=== PATIENT | female | born 1950 | race Caucasian/White ===

== ENCOUNTER → 2016-12-10 | Outpatient (CLI) | payer MEDICARE, OTHER ==
[~2016-12-10] MED LIST: ASPI-481 PO; CALC-134 PO; CHOL100012 PO; DOCU100C PO; IBUP200C11 PO; OMEG-135 PO; RED600CA7 PO; VIT1CAPS10 PO; [UNRECOGNIZED DRUG - CODE] PO
--- NOTE | 2016-12-10 11:52 | RADRPT ---
PROCEDURE: XR left knee. CLINICAL INDICATION: Knee pain TECHNIQUE: AP weightbearing, PA weightbearing, lateral weightbearing and sunrise views are availab le for review. COMPARISON: 07/21/2015 FINDINGS: There is moderate to severe osteoarthrosis involving the lateral tibial femoral compartment and mild to moderate osteoarthrosis involving the medial tibial femoral compartment and the patellofemoral c ompartment. This is associated with joint space narrowing, subchondral sclerosis and osteophytosis. There is chondrocalcinosis with bilateral meniscal calcification and hyaline cartilage calcification . There is otherwise normal mineralization, architecture and alignment. No fractures are identified. No osseous lesions are identified. The soft tissues are unremarkable. IMPRESSION: Moderate to severe osteoarthrosis involving the lateral tibial femoral compartment and mild to moder ate osteoarthrosis involving the medial tibial femoral compartment and of the patellofemoral compart ment. Chondrocalcinosis RPTAT: HGDB .Johnny Elaine MD, MD Date Time Electronically viewed and signed by .Johnny Elaine MD, on 12/10/2016 11:52 .B/
--- NOTE | 2016-12-12 10:17 | RADRPT ---
PROCEDURE: Limited x-ray of both lower extremities. CLINICAL INDICATION: Bilateral leg pain. TECHNIQUE: Single frontal view of both lower extremities was obtained from the hips to the calves. COMPARISON: Bilateral knee radiographs dated 07/21/2015. FINDINGS: Both hips are grossly normal. As seen previously, there is a right knee total arthroplasty and analilia re degenerative changes of the left knee. IMPRESSION: 1. Grossly normal hips. 2. Right knee total arthroplasty. 3. Severe degenerative changes of the left knee. RPTAT: QQ .David Parada MD, MD Date Time Electronically viewed and signed by .David Parada MD, MD on 12/12/2016 10:17 .R/
== END | disposition home or self-care (01) ==
LOC: HKI 09:52
PROVIDERS: ATTEND Orthopaedic Surgery
DX: Z01.818 Encounter for other preprocedural examination (principal); M17.12 Unilateral primary osteoarthritis, left knee; Z96.651 Presence of right artificial knee joint; M81.0 Age-related osteoporosis without current pathological fracture
CPT/HCPCS: 73564; 77073; 87081; G0463

== ENCOUNTER 2016-12-21 05:45 | Inpatient (IN) | payer MEDICARE, OTHER ==
[2016-12-20 10:02] VITALS: BMI 25.4
[~2016-12-21] VITALS: Ht 162.6 cm; Wt 66.4 kg
[2016-12-21] VITALS (27 sets, daily range): BP systolic 91–126; BP diastolic 58–85; PULSE 57–72; RESP 10–21; Ht 162.6 cm; Wt 66.4 kg
[2016-12-21] MEDS ORDERED: DEXAMETHASONE 4 MG/ML 1 ML INJ ONE (06:44)
[2016-12-21] MEDS ORDERED: ONDANSETRON 4 MG INJ ONE (06:44)
[2016-12-21] MEDS ORDERED: PROPOFOL 100 ML ONE (06:44)
[2016-12-21] MEDS ORDERED: METOCLOPRAMIDE 10 MG INJ ONE (06:44)
[2016-12-21] MEDS ORDERED: MIDAZOLAM 1 MG/ML 2 ML INJ ONE (06:44)
[2016-12-21] MEDS ORDERED: POLYMYXIN B 500000 UNIT INJ ONE (06:51)
[2016-12-21] MEDS ORDERED: VANCOMYCIN 1 GM INJ ONE (06:51)
[2016-12-21] MEDS ORDERED: SODIUM CL BACTERIOSTATIC 30 ML INJ ONE (06:51)
[2016-12-21] MEDS ORDERED: CEFAZOLIN 1 GM INJ ONE (06:52)
[2016-12-21] MEDS ORDERED: ATOR40TA68 PO (06:59)
[2016-12-21] MEDS ORDERED: EXEM25TA PO (06:59)
[2016-12-21] MEDS ORDERED: LEVO88TA3 PO (06:59)
[2016-12-21] MEDS ORDERED: SOD CHLORIDE 0.9% IV ONE (07:00)
[2016-12-21] MEDS ORDERED: VANCOMYCIN 1 GM/NS 250 ML X1 BEFORE INCISION IVPB ONE (07:00)
[2016-12-21] MEDS ORDERED: TRANEXAMIC ACID IV ONE (07:00)
[2016-12-21] MEDS ORDERED: CELECOXIB 400 MG PO X1 DOSE PO ONE (07:00)
[2016-12-21] MEDS ORDERED: oxyCODONE (CR) 10 MG TAB [oxyCONTIN] X1 DOSE PO ONE (07:00)
[2016-12-21] MEDS ORDERED: traMADOL 50 MG TAB X 1 DOSE PO ONE (07:00)
[2016-12-21] MEDS ORDERED: LACTATED RINGER'S 1,000 ML IV SCH (07:00)
[2016-12-21] MEDS ORDERED: PREGABALIN 300 MG PO X1 PO ONE (07:00)
[2016-12-21] MEDS ORDERED: FENTAnyl 50 MCG/ML VIAL ONE (07:05)
--- NOTE | 2016-12-21 07:14 | HPN ---
Date/Time of Note Date/Time of Note DATE: 12/21/16 TIME: 07:14 Interval H&P Admission Note Pt. seen H&P reviewed: No system changes No change from H&P on 12/14/16 by JET Hamilton MD Dec 21, 2016 07:14
[2016-12-21] MEDS ORDERED: TRANEXAMIC ACID 670 MG in SOD CHLORIDE 0.9% 100 ML IVPB SCH (08:00)
[2016-12-21] MEDS ORDERED: PAIN COCKTAIL-CEFUROXIME IRR SCH ×7 (08:00)
[2016-12-21] MEDS ORDERED: BACITRACIN 50000 UNITS INJ IRR ONE (08:22)
[2016-12-21] MEDS ORDERED: METOCLOPRAMIDE 10 MG INJ IV PRN (08:30)
[2016-12-21] MEDS ORDERED: DIPHENHYDRAMINE 50 MG INJ IV PRN (08:30)
[2016-12-21] MEDS ORDERED: MEPERIDINE 25 MG INJ IV PRN (08:30)
[2016-12-21] MEDS ORDERED: ONDANSETRON 4 MG INJ IV PRN ×2 (08:30→10:00)
[2016-12-21] MEDS ORDERED: HYDROmorphONE (0.2 MG/ML) 10ML SYG IV PRN ×3 (08:30)
--- NOTE | 2016-12-21 09:56 | OPPN ---
Date/Time of Note Date/Time of Note DATE: 12/21/16 TIME: 09:54 Operative/Procedure Note Dictation # [id number] Pre-Operative Diagnosis Left Knee OA Post-Operative Diagnosis Same Procedure Left TKA Surgeon: JET BALDERAS MD Lug Loader: MASSIMO RATLIFF PA-C Anesthesiologist: SHANE LEIJA MD Findings Severe OA Blood Usage/Administration None Implants/Grafts Depuy Attune TKA Estimated blood loss: 50 - 100 ml's Drains Hemovac x 1 Specimens Bone and soft tissue Complications: None Anesthesia type: spinal JET BALDERAS MD Dec 21, 2016 09:56
--- NOTE | 2016-12-21 09:56 | PN ---
Date/Time of Note Date/Time of Note DATE: 12/21/16 TIME: 09:52 Assessment/Plan Lines/Catheters IV Catheter Type (from Nrsg): Peripheral IV Assessment/Plan Assessment/Plan Stable in PACU, s/p left TKA -cont abx -pain meds as needed -ASA/SCDs for DVT propphylaxis -OOB with PT -monitor drain -check AM labs -d/c zheng in AM XR of the left knee is pending at this time. Subjective 24 Hr Interval Summary Doing well in PACU. Moving all extremities. Denies any significant pain. Exam/Review of Systems Vital Signs Vitals Vital Signs Date Time Temp Pulse Resp B/P Pulse Ox O2 Delivery O2 Flow Rate FiO2 12/21/16 07:19 98.8 67 18 106/72 97 Room Air Intake and Output 12/20/16 12/20/16 12/21/16 15:00 23:00 07:00 Intake Total 0 ml Balance 0 ml Exam Free Text/Dictation Dressing dry Incision clean, dry, and intact without redness or drainage Thigh soft 5/5 Quadriceps, Tibialis Anterior, EHL, Gastroc, Soleus, Peroneals Normal sensation Palpable DT/PT, CR <2 sec No distal edema MASSIMO RATLIFF PA-C Dec 21, 2016 09:56
[2016-12-21] MEDS ORDERED: DIPHENHYDRAMINE 25 MG CAP PO PRN (10:00)
[2016-12-21] MEDS ORDERED: BISACODYL 10 MG SUPP PR PRN (10:00)
[2016-12-21] MEDS ORDERED: NA PHOSPHATE/BIPHOS 133 ML ENEMA PR PRN (10:00)
[2016-12-21] MEDS ORDERED: oxyCODONE 5 MG TAB PO PRN ×2 (10:00)
[2016-12-21] MEDS ORDERED: HYDROmorphONE 1 MG/ML SYG IV PRN (10:00)
[2016-12-21] MEDS ORDERED: ASPIRIN (EC) 325 MG TAB PO ONE (10:00)
[2016-12-21] MEDS ORDERED: NACL 0.9% 3 ML SYG IV SCH (10:00)
[2016-12-21 10:22] LABS: HEMATOCRIT 38.3 % (37.0-47.0); HEMOGLOBIN 13.3 g/dl (12.0-16.0)
[2016-12-21] MEDS: CEFAZOLIN 2 GM/50 ML (PMX) 50 ML IVPB SCH ×2 (10:25→18:56)
[2016-12-21 10:29] LABS: CALCIUM 8.8 mg/dl (8.4-10.2); CREATININE 0.91 mg/dl (0.44-1.00); POTASSIUM 4.5 mmol/L (3.5-5.1)
--- NOTE | 2016-12-21 10:29 | RADRPT ---
PROCEDURE: XR left knee. CLINICAL INDICATION: Knee pain. TECHNIQUE: AP and lateral views are available for review. COMPARISON: No comparison available FINDINGS: There is a postoperative total knee replacement. There is no evidence of loosening of the prosthesis . The osseous structures are normal in mineralization, architecture and alignment No acute fracture or dislocation is seen.No osseous lesions are identified. There are postoperative soft tissue daniels es. The pain is in place . IMPRESSION: Unremarkable postoperative total knee replacement. Postoperative soft tissue changes. RPTAT: HGDB .Johnny Elaine MD, MD Date Time Electronically viewed and signed by .Johnny Elaine MD, on 12/21/2016 10:28 .B/
[2016-12-21] MEDS ORDERED: EXPAREL NOTE (BUPIVICAINE LIPOSOMAL) XX SCH (11:00)
--- NOTE | 2016-12-21 11:52 | OPR ---
DATE OF OPERATION: 12/21/2016 PREOPERATIVE DIAGNOSIS: Left knee osteoarthritis. POSTOPERATIVE DIAGNOSIS: Left knee osteoarthritis. OPERATION PERFORMED: Left total knee arthroplasty. SURGEON: Jet Vogel MD MANAGER COMMUNITY: HIGINIO Drew COMPONENTS USED: DePuy Attune size 4 narrow femoral component, size 3 tibial baseplate, 7 mm polyethylene insert, and a 32 patellar button. ANESTHESIA: Spinal plus general endotracheal intubation, plus periarticular injection. ANESTHESIOLOGIST: Dr. Purcell TOURNIQUET TIME: 55 minutes. ESTIMATED BLOOD LOSS: 50 cc INTRAVENOUS FLUIDS: 1700 mL of crystalloid. SPECIMENS: Bone and soft tissue. DRAINS: Hemovac x1. COMPLICATIONS: None. DISPOSITION: The patient tolerated the procedure well and was taken to the recovery room in stable condition. INDICATIONS: The patient is a 66-year-old woman who has described worsening pain in the left knee with radiographic evidence of severe osteoarthritis. She has failed nonsurgical means of treatment including activity modification, pain medications, intra-articular injections and ambulatory assist devices. Despite these measures, she has had worsening pain and I felt she would benefit from a total knee arthroplasty. The risks, benefits, and alternatives of the procedure were explained in detail to the patient. I explained the risks of the surgery to include but not be limited to, bleeding and possible need for blood transfusion; infection; pain; stiffness; neurovascular injury with possible numbness, weakness, and/or paralysis anywhere from the knee down to the toes; fracture; instability; dislocation; wear and/or loosening of the prosthesis and possible need for future revision; blood clots; pulmonary embolism; and anesthetic complications such as heart attack, stroke, GI bleed, pneumonia, and/or . Ample time was allowed for the patient to ask questions, all of which were addressed and answered. The patient understood the risks involved and wished to proceed. Informed consent was signed prior to the procedure. PROCEDURE: The patient's left knee was initialed with a marking pen in the preoperative area to identify the correct operative site. The patient was brought to the operating room and transferred from the [facility] to the operating table where a spinal anesthetic was administered. The patient was then anesthetized and intubated. A Boucher catheter was placed. A timeout was performed to confirm that the left leg was the correct operative site. The patient was given 2 g of Ancef within one hour prior to the procedure. A tourniquet was placed on the operative proximal thigh. The operative knee and lower extremity were prepped and draped in the usual sterile fashion. The operative lower extremity was elevated and exsanguinated with an Esmarch tourniquet. The proximal thigh tourniquet was inflated to 300 mmHg. The knee was flexed. A midline incision was made and carried down through the subcutaneous tissue and fat with sharp dissection. Limited medial and lateral flaps were raised. A median parapatellar arthrotomy approach was performed. Synovial fluid was normal in color and consistency. The patella was everted and the knee flexed. There were severe tricompartmental osteoarthritic changes noted. A medial release was performed at the joint line to the midcoronal plane. The ACL and PCL and remnants of the menisci were excised. The stepped drill was used to open up the femoral canal which was irrigated and sucked dry. The intramedullary guide tanner was passed up the femur, and the distal cutting block was pinned into place for a 5 degree valgus cut, taking 10 mm of bone off distally. The oscillating saw was used to make the cut. The tibia was subluxed anteriorly. The tibial cutoff jig was placed over the center of the talus distally and over the junction of the medial and middle third of the tibial tubercle proximally. The guide was pinned into place and the oscillating saw was used to make the cut. The tibia was sized. The extension gap was checked and accommodated a 7 mm spacer block with the knee in full extension. There was no varus or valgus instability. At this point, the femur was sized with the posterior referencing guide. Two holes were drilled in 3 degrees of external rotation. The two holes were in line with the transepicondylar axis, perpendicular to Glacier's line, and in line with the tibial cutoff jig brought up with the knee flexed 90 degrees and tensed with 2 lamina spreaders, suggesting the femoral rotation was correct. The four-in-one cutting block was pinned into place. The anterior and posterior cuts and chamfer cuts were made with the oscillating saw. The flexion gap was checked and accommodated the 7 mm spacer block at 90 degrees. There was no varus or valgus instability, suggesting the flexion and extension gaps were now equal. The central box was cut out on the femur. The tibia was drilled and punched in proper rotation. Trial components were placed into position with a trial insert. The patella was cut down from 20 mm down to 13 mm and sized. Three holes were drilled and the trial button placed in position. With all the trials now in place, the knee was taken through range of motion and came to full extension as evidenced by the fact that with the foot on my abdomen and axial loading, there was no tendency for the knee to flex. The knee was able to be flexed to 125 degrees with good patellar tracking with no lateral tilt or subluxation. At this point, I was satisfied with the overall range of motion, stability, and patellar tracking. The trials were removed. The real components were opened. Two bags of cement were mixed, one with and one without premixed antibiotic. The knee was irrigated with antibiotic saline and sucked dry. Once the cement was in a doughy stage, the real components were cemented into place. The knee was held in full extension, and the patellar component was held with a patellar clamp. All excess cement was removed with curettes. As the cement was hardening, the synovial/capsular layer was infiltrated with a mixture of 150 mg of 0.5% Bupivacaine, 8 mg of Duramorph, 300 mcg of epinephrine, 30 mg of Toradol, 100 mcg of clonidine, 750 mg of cefuroxime and 86 mL of normal saline, followed by an injection of 266 mg of liposomal Bupivacaine. A Hemovac drain was placed in the deep portion of the wound and brought out the anterolateral thigh. Once the cement was completely hardened, the trial liner was removed, and the real insert was opened. The tourniquet was let down, and there was good hemostasis. The knee was then irrigated with a mixture of betadine/saline and then antibiotic saline with pulsatile lavage. The real insert was impacted into the tibia and reduced onto to the femur. The arthrotomy was closed with a few interrupted #1 Ethibond in a figure-of- eight fashion, and then closed in a watertight fashion with a running #2 Stratafix suture. Knee flexion was checked against gravity and came to 125 degrees. The subcutaneous layer was irrigated and closed with 2-0 Stratafix, and then 3-0 Stratafix and then lucy on the skin. The wound was covered with an occlusive dressing, and secured with cast padding and a bias dressing. The drain was secured with 3-0 nylon. The sponge and needle counts were correct at the end of the case. The patient was then awakened, extubated, and taken to the recovery room in stable condition. Dictated By: JET DAVILA/NTS Conf#: [id number] DID#: [id number] MTDD
[2016-12-21] MEDS: traMADol 50 MG TAB PO SCH ×3 (12:01→23:37)
[2016-12-21] MEDS: ACETAMINOPHEN 1000MG/100ML IV 100 ML IVPB SCH ×3 (12:01→23:37)
[2016-12-21] MEDS: LACTATED RINGER'S 1,000 ML IV SCH ×2 (12:01→17:39)
[2016-12-21] MEDS ORDERED: TRANEXAMIC ACID IVPB ONE ×2 (12:45→15:45)
[2016-12-21] MEDS ORDERED: SOD CHLORIDE 0.9% IVPB ONE ×2 (12:45→15:45)
--- NOTE | 2016-12-21 13:50 | CONS ---
DATE OF ADMISSION: 12/21/2016 DATE OF CONSULTATION: 12/21/2016 TYPE OF CONSULTATION: Postoperative medical REFERRING PHYSICIAN: Ronald Vogel MD Thank you very much for allowing me to evaluate this 66-year-old female who just underwent left tota l knee arthroplasty. HISTORICAL EVENTS: As you well know, this patient has had progressive disabling pain involving her left knee and elected to proceed with surgical intervention. On the orthopedic floor, she is comfor table without cough, wheezing, shortness of breath, nausea, vomiting, abdominal or chest pain. PAST MEDICAL HISTORY: Includes: 1. Breast cancer, right, she had x-ray therapy and surgical resection. 2. Hypothyroidism. 3. Osteoporosis. 4. Hyperlipidemia. 5. Degenerative arthritis. 6. Peripheral neuropathy. MEDICATIONS: 1. Levoxyl 88 mcg per day. 2. Atorvastatin 10 mg per day. 3. Exemestane 25 mg per day. 4. Advil p.r.n. 5. Aspirin 81 mg per day. 6. MiraLax daily. 7. B12, 2500 mcg per day. ALLERGIES: NONE. PHYSICAL EXAMINATION: GENERAL: [place] female in no acute distress. VITAL SIGNS: Blood pressure 122/80, pulse 70, respirations are 20, she was afebrile. EYES: Extraocular muscles were full. NOSE, MOUTH, AND THROAT: Normal. NECK: Supple. There was no jugular venous distention, thyroid enlargement or adenopathy. Carotids 2+. LUNGS: Clear. HEART: Rhythm regular, no murmur. No third or fourth sound. ABDOMEN: Nontender. Liver and spleen were not palpable. No masses or tenderness were noted. EXTREMITIES: The left was bandaged. The right revealed no calf tenderness or edema. IMPRESSION: 1. Stable postop left knee replacement. 2. Hypothyroidism. Continue her thyroid replacement. 3. Regarding constipation, we will continue MiraLax and stool softener. 4. We will evaluate daily for signs and symptoms of thromboembolic disease despite reported deep ve nous thrombosis prophylaxis. Dictated By: MEGAN LEO/NTS Conf#: [id number] DID#: [id number]
[2016-12-21] MEDS ORDERED: BACITRACIN 50000 UNITS INJ ONE (15:03)
[2016-12-21] MEDS ORDERED: BUPIVACAINE LIPOSOME/PF 266 MG/20 ML VIAL INFIL SCH (15:30)
[2016-12-21 16:28] LABS: ADD UMIC NO; URINE BILIRUBIN (Dip) NEGATIVE (NEGATIVE); URINE BLOOD (Dip) NEGATIVE (NEGATIVE); URINE COLOR LT. YELLOW (YELLOW); URINE GLUCOSE (Dip) NEGATIVE (NEGATIVE); URINE KETONES (Dip) NEGATIVE (NEGATIVE); URINE LEUKOCYTE ESTERASE (Dip) NEGATIVE (NEGATIVE); URINE NITRITE (Dip) NEGATIVE (NEGATIVE); URINE TOTAL PROTEIN (Dip) NEGATIVE (NEGATIVE); URINE UROBILINOGEN (Dip) 0.2 E.U./dL (0.1-1.0)
[2016-12-21] MEDS: PANTOPRAZOLE (EC) 40 MG TAB PO SCH (18:03)
[2016-12-21] MEDS ORDERED: ATORVASTATIN 40 MG TAB PO SCH (21:00)
[2016-12-21] MEDS: ATORVASTATIN 40 MG TAB PO SCH (21:06)
[2016-12-21] MEDS: PREGABALIN 25 MG CAP PO SCH (21:06)
[2016-12-21] MEDS: DOCUSATE SODIUM 100 MG CAP PO SCH (21:06)
[2016-12-21] MEDS: EXEMESTANE 25 MG TAB PO SCH (21:24)
[2016-12-22 00:45] VITALS: BP 92/60; RESP 20
[2016-12-22] MEDS: CEFAZOLIN 2 GM/50 ML (PMX) 50 ML IVPB SCH (02:02)
[2016-12-22] MEDS: LACTATED RINGER'S 1,000 ML IV SCH ×3 (03:11→17:39)
[2016-12-22 04:25] VITALS: BP 96/62; PULSE 68; RESP 18
[2016-12-22 05:28] LABS: HEMOGLOBIN 12.7 g/dl (12.0-16.0)
[2016-12-22 05:31] LABS: POTASSIUM 4.2 mmol/L (3.5-5.1)
[2016-12-22 05:33] LABS: CREATININE 0.79 mg/dl (0.44-1.00)
[2016-12-22 05:34] LABS: CALCIUM 8.8 mg/dl (8.4-10.2)
[2016-12-22] MEDS: LEVOTHYROXINE 88 MCG TAB PO SCH (05:55)
[2016-12-22] MEDS: traMADol 50 MG TAB PO SCH ×3 (05:55→17:59)
[2016-12-22] MEDS: PANTOPRAZOLE (EC) 40 MG TAB PO SCH ×2 (05:55→17:59)
[2016-12-22] MEDS: ACETAMINOPHEN 1000MG/100ML IV 100 ML IVPB SCH (05:55)
[2016-12-22] MEDS ORDERED: LEVOTHYROXINE 88 MCG TAB PO SCH (07:00)
[2016-12-22 07:16] LABS: ADD UMIC YES; URINE BILIRUBIN (Dip) NEGATIVE (NEGATIVE); URINE BLOOD (Dip) TRACE (NEGATIVE); URINE COLOR LT. YELLOW (YELLOW); URINE GLUCOSE (Dip) NEGATIVE (NEGATIVE); URINE KETONES (Dip) NEGATIVE (NEGATIVE); URINE LEUKOCYTE ESTERASE (Dip) NEGATIVE (NEGATIVE); URINE NITRITE (Dip) NEGATIVE (NEGATIVE); URINE TOTAL PROTEIN (Dip) NEGATIVE (NEGATIVE); URINE UROBILINOGEN (Dip) 0.2 E.U./dL (0.1-1.0)
[2016-12-22 07:35] LABS: SQUAMOUS EPITHELIAL CELL,UR OCCASIONAL; URINE RBCS 0-2 /HPF (0)
[2016-12-22 07:58] VITALS: BP 106/70; RESP 20
--- NOTE | 2016-12-22 08:49 | CONS ---
Date/Time of Note Date/Time of Note DATE: 12/22/16 TIME: 08:48 Assessment/Plan Assessment/Plan Additional Assessment/Plan 1. Stable postop left knee replacement. 2. Hypothyroidism, on thryoid replacement Consultation Date/Type/Reason Admit Date/Time Dec 21, 2016 at 05:45 Initial Consult Date Detailed Summary Respiratory: No shortness of breath Cardiovascular: No chest pain, No orthopenea Gastrointestinal: no complaints Genitourinary: other (zheng in place) Musculoskeletal: bone/joint pain (mild left knee pain) Exam/Review of Systems Vital Signs Vitals Vital Signs Date Time Temp Pulse Resp B/P Pulse Ox O2 Delivery O2 Flow Rate FiO2 12/22/16 07:58 97.6 65 20 106/70 98 12/22/16 04:25 Room Air 12/21/16 14:00 2.0 Intake and Output 12/21/16 12/21/16 12/22/16 15:00 23:00 07:00 Intake Total 2306.7 ml 1575 ml 2390 ml Output Total 220 ml 800 ml 3520 ml Balance 2086.7 ml 775 ml -1130 ml Exam Neck: No jvd Respiratory: clear to auscultation Cardiovascular: regular rate and rhythm Gastrointestinal: soft Extremities: No edema (and no calf tend) Results Result Diagram: 12/22/16 0451 12/22/16 0451 Results 24 hrs Laboratory Tests Test 12/21/16 09:43 12/21/16 10:07 12/22/16 04:51 12/22/16 05:00 Urine Bilirubin NEGATIVE NEGATIVE Urine Clarity CLEAR CLEAR Urine Color LT. YELLOW LT. YELLOW Urine Glucose NEGATIVE NEGATIVE Urine Hemoglobin NEGATIVE TRACE Urine Ketones NEGATIVE NEGATIVE Urine Leukocyte Esterase NEGATIVE NEGATIVE Urine Nitrite NEGATIVE NEGATIVE Urine Specific [place] <=1.005 L <=1.005 L Urine Total Protein NEGATIVE NEGATIVE Urine Urobilinogen 0.2 E.U./dL 0.2 E.U./dL Urine pH 5.5 5.0 Anion Gap 14 14 Blood Urea Nitrogen 16 12 Calcium Level 8.8 8.8 Carbon Dioxide Level 24 26 Chloride Level 108 107 Creatinine 0.91 0.79 Glucose Level 107 121 Hematocrit 38.3 37.0 Hemoglobin 13.3 12.7 Potassium Level 4.5 4.2 Sodium Level 141 143 Urine Microscopic RBC 0-2 Urine Microscopic WBC NONE SEEN Urine Squamous Epithelial Cells OCCASIONAL Medications Medications Current Medications Miscellaneous Information 1 ea 1 ea NOTE XX ; Start 12/21/16 at 11:00; Stop at 10:59 Lactated Ringer's (Lr) 1,000 ml @ 125 mls/hr Q8H IV Last administered on 03:11; Admin Dose 125 MLS/HR; Start 12/21/16 at 09:39 Celecoxib 200 mg 200 mg DAILY PO ; Start 12/22/16 at 09:00 Acetaminophen (Ofirmev 1000mg/ 100ml Iv) 100 ml @ 400 mls/hr Q6 IVPB Last administered on 12/22/16 05:55; Admin Dose 400 MLS/HR; Start 12/21/16 at 12:00 ; Stop 12/22/16 at 11:59 Tramadol HCl (Ultram) 50 mg Q6 PO Last administered on 12/22/16 05:55; Admin Dose 50 MG; Start 12/21/16 at 12:00; Stop 12/24/16 at 11:59 Oxycodone HCl (Roxicodone) 5 mg Q4H PRN PO PAIN LEVEL 1-3; Start 12/21/16 at 10 :00 Oxycodone HCl (Roxicodone) 10 mg Q4H PRN PO PAIN LEVEL 4-7; Start 12/21/16 at 10:00 Hydromorphone HCl (Dilaudid) 1 mg Q3H PRN IV PAIN LEVEL 8-10; Start 12/21/16 at 10:00 Ondansetron HCl (Zofran Inj) 4 mg Q6H PRN IV NAUSEA AND/OR VOMITING; Start at 10:00 Bisacodyl (Dulcolax Supp) 10 mg Q12H PRN [place] CONSTIPATION; Start 12/21/16 at 10: 00 Magnesium Hydroxide (Milk Of Mag) 30 ml BID PRN PO CONSTIPATION; Start at 10:00 Sodium Biphosphate/ Sodium Phosphate (Fleet Enema) 133 ml DAILY PRN [place] CONSTIPATION; Start 12/21/16 at 10:00 Docusate Sodium (Colace) 100 mg BID PO Last administered on 12/21/16 21:06; Admin Dose 100 MG; Start 12/21/16 at 21:00 Diphenhydramine HCl (Benadryl) 25 mg Q6H PRN PO PRURITUS; Start 12/21/16 at 10: 00 Aspirin (Ecotrin) 325 mg BID PO ; Start 12/22/16 at 09:00 Pantoprazole (Protonix Tab) 40 mg BID@06,18 PO Last administered on 12/22/16 05:55; Admin Dose 40 MG; Start 12/21/16 at 18:00 Pregabalin (Lyrica) 50 mg BID PO Last administered on 12/21/16 21:06; Admin Dose 50 MG; Start 12/21/16 at 21:00 Atorvastatin Calcium (Lipitor) 40 mg HS PO Last administered on 12/21/16 21:06 ; Admin Dose 40 MG; Start 12/21/16 at 21:00 Levothyroxine Sodium (Synthroid) 88 mcg DAILY@06 PO Last administered on 05:55; Admin Dose 88 MCG; Start 12/22/16 at 06:00 Polyethylene Glycol (Miralax) 17 gm DAILY PO ; Start 12/22/16 at 09:00 Exemestane (Aromasin) 25 mg HS PO Last administered on 12/21/16 21:24; Admin Dose 25 MG; Start 12/21/16 at 22:00 MEGAN WALL MD Dec 22, 2016 08:49
--- NOTE | 2016-12-22 08:54 | PN ---
Date/Time of Note Date/Time of Note DATE: 12/22/16 TIME: 08:52 Assessment/Plan Lines/Catheters IV Catheter Type (from Nrsg): Peripheral IV Boucher in Place (from Nrsg): Yes Assessment/Plan Assessment/Plan Stable POD #1, s/p left TKA -d/c abx -drain removed -pain meds as needed -ASA/SCDs for DVT prophylaxis -OOB with PT -check AM labs -d/c planning. Plan to d/c home tomorrow Subjective 24 Hr Interval Summary Doing well. No acute overnight events. Denies any significant pain. Moving all extremities. Progressing with PT and doing exercises upon evaluation today. Exam/Review of Systems Vital Signs Vitals Vital Signs Date Time Temp Pulse Resp B/P Pulse Ox O2 Delivery O2 Flow Rate FiO2 12/22/16 07:58 97.6 65 20 106/70 98 12/22/16 04:25 Room Air 12/21/16 14:00 2.0 Intake and Output 12/21/16 12/21/16 12/22/16 15:00 23:00 07:00 Intake Total 2306.7 ml 1575 ml 2390 ml Output Total 220 ml 800 ml 3520 ml Balance 2086.7 ml 775 ml -1130 ml Exam Free Text/Dictation Hemovac: 140cc Dressing dry Incision clean, dry, and intact without redness or drainage Thigh soft 5/5 Quadriceps, Tibialis Anterior, EHL, Gastroc, Soleus, Peroneals Normal sensation Palpable DT/PT, CR <2 sec No distal edema Results Result Diagram: 12/22/16 0451 12/22/16 0451 MASSIMO RATLIFF PA-C Dec 22, 2016 08:54
[2016-12-22] MEDS ORDERED: EXEMESTANE 25 MG TAB PO SCH (09:00)
[2016-12-22] MEDS: CELECOXIB 200 MG CAP PO SCH (09:23)
[2016-12-22] MEDS: DOCUSATE SODIUM 100 MG CAP PO SCH ×2 (09:23→21:00)
[2016-12-22] MEDS: ASPIRIN (EC) 325 MG TAB PO SCH ×2 (09:23→20:57)
[2016-12-22] MEDS: POLYETHYLENE GLYCOL 17 GM PACKET PO SCH (09:24)
[2016-12-22] MEDS: PREGABALIN 25 MG CAP PO SCH ×2 (09:24→20:57)
[2016-12-22 20:00] VITALS: BP 97/59; RESP 18
[2016-12-22] MEDS: ATORVASTATIN 40 MG TAB PO SCH (20:57)
[2016-12-22] MEDS: MAGNESIUM HYDROXIDE 30ML CUP PO PRN (20:57)
[2016-12-22] MEDS: EXEMESTANE 25 MG TAB PO SCH (21:01)
[2016-12-23] MEDS: LACTATED RINGER'S 1,000 ML IV SCH ×2 (01:39→08:39)
[2016-12-23] MEDS: PANTOPRAZOLE (EC) 40 MG TAB PO SCH (05:25)
[2016-12-23] MEDS: traMADol 50 MG TAB PO SCH ×3 (05:25→11:43)
[2016-12-23] MEDS: LEVOTHYROXINE 88 MCG TAB PO SCH (05:26)
[2016-12-23 05:41] LABS: POTASSIUM 4.4 mmol/L (3.5-5.1)
[2016-12-23 05:44] LABS: CREATININE 0.84 mg/dl (0.44-1.00)
[2016-12-23 05:45] LABS: CALCIUM 8.8 mg/dl (8.4-10.2)
[2016-12-23 05:51] LABS: HEMOGLOBIN 12.1 g/dl (12.0-16.0)
[2016-12-23 07:50] VITALS: BP 103/69; RESP 19
[2016-12-23] MEDS: POLYETHYLENE GLYCOL 17 GM PACKET PO SCH (08:36)
[2016-12-23] MEDS: PREGABALIN 25 MG CAP PO SCH (08:36)
[2016-12-23] MEDS: ASPIRIN (EC) 325 MG TAB PO SCH (08:36)
[2016-12-23] MEDS: DOCUSATE SODIUM 100 MG CAP PO SCH (08:36)
[2016-12-23] MEDS: CELECOXIB 200 MG CAP PO SCH (08:36)
--- NOTE | 2016-12-23 09:31 | PN ---
Date/Time of Note Date/Time of Note DATE: 12/22/16 TIME: 09:30 A 66 year female s/p LTKA POD #1 under TIVA and Spinal. pain is controlled, o N/ V, Itchinfg or headache. back is clean. V/S stable Assessment/Plan VTE Prophylaxis VTE Prophylaxis Intervention: SCD's Lines/Catheters IV Catheter Type (from Nrsg): Saline Lock Urinary Cath still in place: No Exam/Review of Systems Vital Signs Vitals Vital Signs Date Time Temp Pulse Resp B/P Pulse Ox O2 Delivery O2 Flow Rate FiO2 12/23/16 07:50 97.7 70 19 103/69 98 12/22/16 04:25 Room Air 12/21/16 14:00 2.0 Intake and Output 12/22/16 12/22/16 12/23/16 15:00 23:00 07:00 Intake Total 500 ml 840 ml 1100 ml Output Total 1200 ml 1040 ml Balance 500 ml -360 ml 60 ml Results Result Diagram: 12/23/16 0457 12/23/16 0457 Results 24 hrs Laboratory Tests Test 12/23/16 04:57 Anion Gap 9 # Blood Urea Nitrogen 10 Calcium Level 8.8 Carbon Dioxide Level 33 H Chloride Level 105 Creatinine 0.84 Glucose Level 95 Hematocrit 36.0 L Hemoglobin 12.1 Potassium Level 4.4 Sodium Level 143 Medications Medications Current Medications Miscellaneous Information 1 ea 1 ea NOTE XX ; Start 12/21/16 at 11:00; Stop at 10:59 Lactated Ringer's (Lr) 1,000 ml @ 125 mls/hr Q8H IV Last administered on 03:11; Admin Dose 125 MLS/HR; Start 12/21/16 at 09:39 Celecoxib (Celebrex) 200 mg DAILY PO Last administered on 12/23/16 08:36; Admin Dose 200 MG; Start 12/22/16 at 09:00 Tramadol HCl (Ultram) 50 mg Q6 PO Last administered on 12/23/16 05:25; Admin Dose 50 MG; Start 12/21/16 at 12:00; Stop 12/24/16 at 11:59 Oxycodone HCl (Roxicodone) 5 mg Q4H PRN PO PAIN LEVEL 1-3 Last administered on 12/23/16 02:17; Admin Dose 5 MG; Start 12/21/16 at 10:00 Oxycodone HCl (Roxicodone) 10 mg Q4H PRN PO PAIN LEVEL 4-7 Last administered on 12/23/16 08:35; Admin Dose 10 MG; Start 12/21/16 at 10:00 Hydromorphone HCl (Dilaudid) 1 mg Q3H PRN IV PAIN LEVEL 8-10; Start 12/21/16 at 10:00 Ondansetron HCl (Zofran Inj) 4 mg Q6H PRN IV NAUSEA AND/OR VOMITING; Start at 10:00 Bisacodyl (Dulcolax Supp) 10 mg Q12H PRN [place] CONSTIPATION; Start 12/21/16 at 10: 00 Magnesium Hydroxide (Milk Of Mag) 30 ml BID PRN PO CONSTIPATION Last administered on 12/22/16 20:57; Admin Dose 30 ML; Start 12/21/16 at 10:00 Sodium Biphosphate/ Sodium Phosphate (Fleet Enema) 133 ml DAILY PRN [place] CONSTIPATION; Start 12/21/16 at 10:00 Docusate Sodium (Colace) 100 mg BID PO Last administered on 12/23/16 08:36; Admin Dose 100 MG; Start 12/21/16 at 21:00 Diphenhydramine HCl (Benadryl) 25 mg Q6H PRN PO PRURITUS; Start 12/21/16 at 10: 00 Aspirin (Ecotrin) 325 mg BID PO Last administered on 12/23/16 08:36; Admin Dose 325 MG; Start 12/22/16 at 09:00 Pantoprazole (Protonix Tab) 40 mg BID@06,18 PO Last administered on 12/23/16 05:25; Admin Dose 40 MG; Start 12/21/16 at 18:00 Pregabalin (Lyrica) 50 mg BID PO Last administered on 12/23/16 08:36; Admin Dose 50 MG; Start 12/21/16 at 21:00 Atorvastatin Calcium (Lipitor) 40 mg HS PO Last administered on 12/22/16 20:57 ; Admin Dose 40 MG; Start 12/21/16 at 21:00 Levothyroxine Sodium (Synthroid) 88 mcg DAILY@06 PO Last administered on 05:26; Admin Dose 88 MCG; Start 12/22/16 at 06:00 Polyethylene Glycol (Miralax) 17 gm DAILY PO Last administered on 12/23/16 08: 36; Admin Dose 17 GM; Start 12/22/16 at 09:00 Exemestane (Aromasin) 25 mg HS PO Last administered on 12/22/16 21:01; Admin Dose 25 MG; Start 12/21/16 at 22:00 SHANE LEIJA MD Dec 23, 2016 09:31
--- NOTE | 2016-12-23 11:07 | PN ---
Date/Time of Note Date/Time of Note DATE: 12/23/16 TIME: 11:06 Assessment/Plan Lines/Catheters IV Catheter Type (from Nrsg): Saline Lock Boucher in Place (from Nrsg): No Assessment/Plan Assessment/Plan Stable POD #2, s/p left TKA -pain meds as needed -cont ASA/SCDs for DVT prophylaxis -OOB with PT -dressing changed -d/c home today -follow up in the office on 12/31/16 Subjective 24 Hr Interval Summary Doing well. No acute overnight events. Mild pain. Progressing very well with PT. Would like to go home today. Exam/Review of Systems Vital Signs Vitals Vital Signs Date Time Temp Pulse Resp B/P Pulse Ox O2 Delivery O2 Flow Rate FiO2 12/23/16 07:50 97.7 70 19 103/69 98 12/22/16 04:25 Room Air 12/21/16 14:00 2.0 Intake and Output 12/22/16 12/22/16 12/23/16 15:00 23:00 07:00 Intake Total 500 ml 840 ml 1100 ml Output Total 1200 ml 1040 ml Balance 500 ml -360 ml 60 ml Exam Free Text/Dictation Dressing dry Incision clean, dry, and intact without redness or drainage Thigh soft 5/5 Quadriceps, Tibialis Anterior, EHL, Gastroc, Soleus, Peroneals Normal sensation Palpable DT/PT, CR <2 sec No distal edema Results Result Diagram: 12/23/167 12/23/16 0457 MASSIMO RATLIFF PA-C Dec 23, 2016 11:07
--- NOTE | 2016-12-23 11:55 | CONS ---
Date/Time of Note Date/Time of Note DATE: 12/23/16 TIME: 11:54 Assessment/Plan Assessment/Plan Additional Assessment/Plan 1. Stable postop left knee replacement, labs rev 2. Hypothyroidism, on thryoid replacement 3. Can dc if ok with ortho and PT Consultation Date/Type/Reason Admit Date/Time Dec 21, 2016 at 05:45 Detailed Summary Respiratory: No shortness of breath Cardiovascular: No chest pain, No orthopenea Gastrointestinal: no complaints Genitourinary: no complaints Musculoskeletal: bone/joint pain (mild left knee pain) Exam/Review of Systems Vital Signs Vitals Vital Signs Date Time Temp Pulse Resp B/P Pulse Ox O2 Delivery O2 Flow Rate FiO2 12/23/16 07:50 97.7 70 19 103/69 98 12/22/16 04:25 Room Air 12/21/16 14:00 2.0 Intake and Output 12/22/16 12/22/16 12/23/16 15:00 23:00 07:00 Intake Total 500 ml 840 ml 1100 ml Output Total 1200 ml 1040 ml Balance 500 ml -360 ml 60 ml Exam Neck: No jvd Respiratory: clear to auscultation Cardiovascular: regular rate and rhythm Gastrointestinal: soft Extremities: No edema (and no calf tend and edema lower extrem bilat) Results Result Diagram: 12/23/16 0457 12/23/16 0457 Results 24 hrs Laboratory Tests Test 12/23/16 04:57 Anion Gap 9 # Blood Urea Nitrogen 10 Calcium Level 8.8 Carbon Dioxide Level 33 H Chloride Level 105 Creatinine 0.84 Glucose Level 95 Hematocrit 36.0 L Hemoglobin 12.1 Potassium Level 4.4 Sodium Level 143 Medications Medications Current Medications Miscellaneous Information 1 ea 1 ea NOTE XX ; Start 12/21/16 at 11:00; Stop at 10:59 Lactated Ringer's (Lr) 1,000 ml @ 125 mls/hr Q8H IV Last administered on 03:11; Admin Dose 125 MLS/HR; Start 12/21/16 at 09:39 Celecoxib (Celebrex) 200 mg DAILY PO Last administered on 12/23/16 08:36; Admin Dose 200 MG; Start 12/22/16 at 09:00 Tramadol HCl (Ultram) 50 mg Q6 PO Last administered on 12/23/16 05:25; Admin Dose 50 MG; Start 12/21/16 at 12:00; Stop 12/24/16 at 11:59 Oxycodone HCl (Roxicodone) 5 mg Q4H PRN PO PAIN LEVEL 1-3 Last administered on 12/23/16 02:17; Admin Dose 5 MG; Start 12/21/16 at 10:00 Oxycodone HCl (Roxicodone) 10 mg Q4H PRN PO PAIN LEVEL 4-7 Last administered on 12/23/16 08:35; Admin Dose 10 MG; Start 12/21/16 at 10:00 Hydromorphone HCl (Dilaudid) 1 mg Q3H PRN IV PAIN LEVEL 8-10; Start 12/21/16 at 10:00 Ondansetron HCl (Zofran Inj) 4 mg Q6H PRN IV NAUSEA AND/OR VOMITING; Start at 10:00 Bisacodyl (Dulcolax Supp) 10 mg Q12H PRN IN CONSTIPATION; Start 12/21/16 at 10: 00 Magnesium Hydroxide (Milk Of Mag) 30 ml BID PRN PO CONSTIPATION Last administered on 12/22/16 20:57; Admin Dose 30 ML; Start 12/21/16 at 10:00 Sodium Biphosphate/ Sodium Phosphate (Fleet Enema) 133 ml DAILY PRN IN CONSTIPATION; Start 12/21/16 at 10:00 Docusate Sodium (Colace) 100 mg BID PO Last administered on 12/23/16 08:36; Admin Dose 100 MG; Start 12/21/16 at 21:00 Diphenhydramine HCl (Benadryl) 25 mg Q6H PRN PO PRURITUS; Start 12/21/16 at 10: 00 Aspirin (Ecotrin) 325 mg BID PO Last administered on 12/23/16 08:36; Admin Dose 325 MG; Start 12/22/16 at 09:00 Pantoprazole (Protonix Tab) 40 mg BID@,18 PO Last administered on 12/23/16 05:25; Admin Dose 40 MG; Start 12/21/16 at 18:00 Pregabalin (Lyrica) 50 mg BID PO Last administered on 12/23/16 08:36; Admin Dose 50 MG; Start 12/21/16 at 21:00 Atorvastatin Calcium (Lipitor) 40 mg HS PO Last administered on 12/22/16 20:57 ; Admin Dose 40 MG; Start 12/21/16 at 21:00 Levothyroxine Sodium (Synthroid) 88 mcg DAILY@06 PO Last administered on 05:26; Admin Dose 88 MCG; Start 12/22/16 at 06:00 Polyethylene Glycol (Miralax) 17 gm DAILY PO Last administered on 12/23/16 08: 36; Admin Dose 17 GM; Start 12/22/16 at 09:00 Exemestane (Aromasin) 25 mg HS PO Last administered on 12/22/16 21:01; Admin Dose 25 MG; Start 12/21/16 at 22:00 MEGAN WALL MD Dec 23, 2016 11:55
[2016-12-23] MEDS: MAGNESIUM HYDROXIDE 30ML CUP PO PRN (13:15)
--- NOTE | 2016-12-23 13:19 | PDOCDIS ---
Discharge Instructions DIAGNOSIS Discharge Diagnosis: s/p left TKA CONDITION Patient Condition: Good HOME CARE INSTRUCTIONS: Diet Instructions: Regular ACTIVITY: Activity Restrictions: Slowly Increase Activity Rest between Activity Avoid heavy lifting Do not operate Machinery Do not operate Power Tool Avoid Heavy Housework Keep Limb Elevated Bathing Restrictions: Shower FOLLOW UP/APPOINTMENTS Appointments follow up in the office on 12/31/16 OTHER ORDERS: Other Orders: S/P TKA Physical Therapy: Three times per week at home x 2 weeks Daily in Rehab/SNF WB STATUS: WBAT 1. Strengthening exercises for both upper and un-operated lower extremities. 2. Gait training with front wheeled walker 3. Active range of motion exercises to operative knee. 4. When not working on knee range of motion exercises, distal towel roll under operative ankle/distal calf to promote full extension. 5. DO NOT PUT ANYTHING BEHIND OPERATIVE KNEE!!! 6. Quadriceps and hamstring strengthening. 7. May switch to cane in contra lateral hand 6 weeks after surgery. 8. Physical Therapy can open case if nursing is not available. 9. Use Ice Machine as instructed from date of surgery while at rest 3X/day. 10. Patient requires mobile SCDs to reduce risk of developing DVT following TKA. Patient will use the mobile SCDs for 30 days postoperatively. Bathing assistance by home health aide twice weekly if Medicare patient. Occupational Therapy: Evaluation for assistive devices and ADL training. Wound Care: Keep incision dry & covered with Tegaderm until first visit with Dr. Vogel Anticoagulation Orders: Enteric Coated Aspirin 325 mg po bid x 6 weeks from date of surgery Follow-up:Call for an appointment with Dr. Vogel in 1 week after discharged from hospital at DME Orders: MENDEL, 3-in-1 Commode, Polar ice machine, Mobile SCDs MASSIMO RATLIFF PA-C Dec 23, 2016 13:18
[2016-12-23] MEDS ORDERED: HYDR-905 PO (13:21)
[2016-12-23] MEDS ORDERED: LYRI25 PO (13:21)
[2016-12-23] MEDS ORDERED: PANT40TA4 PO (13:21)
[2016-12-23] MEDS ORDERED: ASPI325T32 PO (13:21)
[2016-12-23] MEDS ORDERED: TRAM50TA2 PO (13:21)
--- NOTE | 2016-12-23 13:41 | PN ---
Date/Time of Note Date/Time of Note DATE: 12/23/16 TIME: 13:38 Assessment/Plan Lines/Catheters IV Catheter Type (from Nrsg): Saline Lock Zheng in Place (from Nrsg): No Assessment/Plan Assessment/Plan Stable in PACU, s/p right TKA -continue Vanco -pain meds as needed -coumadin 2.5mg at 1700 today -check AM labs including INR -OOB with PT -monitor drain -d/c zheng in AM XR of the right knee is pending at this time Subjective 24 Hr Interval Summary Doing well in PACU. Sitting up resting comfortably. Denies any pain. Moving all extremities. Exam/Review of Systems Vital Signs Vitals Vital Signs Date Time Temp Pulse Resp B/P Pulse Ox O2 Delivery O2 Flow Rate FiO2 12/23/16 07:50 97.7 70 19 103/69 98 12/22/16 04:25 Room Air 12/21/16 14:00 2.0 Intake and Output 12/22/16 12/22/16 12/23/16 15:00 23:00 07:00 Intake Total 500 ml 840 ml 1100 ml Output Total 1200 ml 1040 ml Balance 500 ml -360 ml 60 ml Exam Free Text/Dictation Dressing dry Incision clean, dry, and intact without redness or drainage Thigh soft 5/5 Quadriceps, Tibialis Anterior, EHL, Gastroc, Soleus, Peroneals Normal sensation Palpable DT/PT, CR <2 sec No distal edema Results Result Diagram: 12/23/16 0457 12/23/16 0457 MASSIMO RATLIFF PA-C Dec 23, 2016 13:41
--- NOTE | 2016-12-24 06:45 | DS ---
DATE OF ADMISSION: 12/21/2016 DATE OF DISCHARGE: 12/23/2016 CONDITION UPON DISCHARGE: Stable. ADMITTING DIAGNOSIS: Left knee osteoarthritis. DISCHARGE DIAGNOSIS: Status post left total knee arthroplasty. PROCEDURE PERFORMED: Left total knee arthroplasty. HOSPITAL COURSE: This is a 66-year-old female who was seen in the clinic initially complaining of right knee pain. She had previously underwent a right TKA and x-rays demonstrated advanced osteoarthritis of the left knee as well. On 12/21/2016, the patient was admitted and taken to the operating room where she underwent a left total knee arthroplasty. There were no intraoperative complications. The patient tolerated the procedure well. She was taken to the recovery room in stable condition. Pain was well controlled with oral pain medication. She was started on aspirin and SCDs for DVT prophylaxis. She remained hemodynamically stable and neurovascularly intact throughout her hospital stay. On postoperative day zero she began physical therapy and continued to make good progress throughout her hospital stay. On postoperative day 2, she was deemed stable for discharge. Prior to discharge, the incision was inspected and noted to be clean, dry, and intact. Dressing changes were done prior to patient going home. LABORATORY ANALYSIS: hemoglobin 12.1, hematocrit 36.0. Chemistry panel was within normal limits. DISCHARGE MEDICATIONS: 1. Doyle 7.5/325 mg. 2. Tramadol 50 mg. 3. Lyrica 50 mg. 4. Protonix 40 mg. 5. Aspirin 325 mg. 6. Additionally, the patient is to resume all her home medications. DISCHARGE INSTRUCTIONS: The patient will be discharged home in stable condition. She is to resume her normal diet. Activity includes weightbearing as tolerated on the left lower extremity. She began physical therapy with home health. She will be discharged home with the medications noted above and is to resume all of her normal home medications. The patient is to call the office or return to the emergency room for any concerns including increased redness, swelling, drainage, fever or any concern regarding the operation or site of incision. FOLLOWUP: The patient is to follow up with Dr. Vogel on 12/31/2016. Dictated By: MASSIMO SYLVESTER for JET DEAL/KAYLIE Conf#: [id number] DID#: [id number] [facility]ERSil[facility]
== END 2016-12-23 15:00 | disposition home or self-care (01) | DRG 470 ==
LOC: REC 05:45 → MS1 10:43
PROVIDERS: ADMIT Orthopaedic Surgery; ATTEND Orthopaedic Surgery
PROC: 0SRD0J9 Replacement of Left Knee Joint with Synthetic Substitute, Cemented, Open Approach (ICD-10-PCS; principal; 2016-12-21 07:00)
DX: M17.12 Unilateral primary osteoarthritis, left knee (principal); G62.9 Polyneuropathy, unspecified; E78.5 Hyperlipidemia, unspecified; E03.9 Hypothyroidism, unspecified; M81.0 Age-related osteoporosis without current pathological fracture; L71.9 Rosacea, unspecified; Z85.3 Personal history of malignant neoplasm of breast; Z90.11 Acquired absence of right breast and nipple; Z92.3 Personal history of irradiation
CPT/HCPCS: 73560; 80048; 81001; 81003; 85014; 85018; 86850; 86900; 86901; 86920; 87081; 87086; 88304; 88311; 97110; 97116; 97163; 97166; Z7610; C1776; C9290; J0131; J0171; J0690; J0697; J0735; J1100; J1885; J2250; J2274; J2405; J2765; J3010; J3370; J7120

== ENCOUNTER 2016-12-25 08:09 | Emergency (ER) | payer MEDICARE, OTHER ==
[~2016-12-25] VITALS: Ht 162.6 cm; Wt 72.0 kg
[~2016-12-25 08:09] MED LIST changes: -ASPI-481 PO; +ASPI325T32 PO; +ATOR40TA68 PO; -CALC-134 PO; -DOCU100C PO; +EXEM25TA PO; +HYDR-905 PO; -IBUP200C11 PO; +LEVO88TA3 PO; +LYRI25 PO; -OMEG-135 PO; +PANT40TA4 PO; -RED600CA7 PO; +TRAM50TA2 PO; -VIT1CAPS10 PO
[2016-12-25 08:13] VITALS: Ht 162.6 cm; Wt 72.0 kg
[2016-12-25] MEDS ORDERED: DICLOFENAC SODIUM 37.5 MG/ML VIAL IV STA (08:35)
--- NOTE | 2016-12-25 08:45 | ERD ---
ER Documentation Chief Complaint Date/Time DATE: 12/25/16 TIME: 08:39 Chief Complaint pt c/o left knee swelling s/p surg on MD Delon will meet her here HPI This is a 66-year-old female that presents to the emergency department postop day 5 after a left knee replacement complaining of swelling and mild redness that developed this morning upon awakening. The patient states she has had no fevers no shaking or chills. She has been taking analgesic medication her last dose was roughly 4 hours prior to arrival. She indicated she found her surgeon Dr. Vogel and was instructed to come to the emergency department to be further evaluated. She states there is mild calf tenderness and she has no shortness of breath at rest or exertion ROS All systems reviewed and are negative except as per history of present illness. Medications Home Meds Active Scripts Hydrocodone/Acetaminophen ([place] 7.5-325 Tablet) 1 Each Tablet, 1 EACH PO Q6 Y for PAIN for 30 Days, #60 TAB Prov:AMSSIMO RALTIFF PA-C 12/23/16 Tramadol HCl (Tramadol HCl) 50 Mg Tablet, 50 MG PO Q6 for 30 Days, #60 TAB Prov:MASSIMO RATLIFF PA-C 12/23/16 Pantoprazole* (Pantoprazole*) 40 Mg Tablet., 40 MG PO BID@06,18 for 40 Days, # 40 Prov:MASSIMO RATLIFF PA-C 12/23/16 Pregabalin* (Lyrica*) 25 Mg Capsule, 50 MG PO BID for 30 Days, #60 CAP Prov:MASSIMO RATLIFF PA-C 12/23/16 Aspirin (Aspir-Perla) 325 Mg Tablet., 325 MG PO BID for 42 Days, #84 Prov:MASSIMO RATLIFF PA-C 12/23/16 Reported Medications Atorvastatin* (Atorvastatin*) 40 Mg Tablet, 10 MG PO QHS, #30 TAB 12/21/16 Levothyroxine Sodium* (Levothyroxine Sodium*) 88 Mcg Tablet, 88 MCG PO BEFORE BREAKFAST, #30 TAB 12/21/16 Exemestane* (Exemestane*) 25 Mg Tablet, 25 MG PO, TAB 12/21/16 Cholecalciferol (Vitamin D3) 1,000 Unit Tab.chew, 1000 UNIT PO DAILY 03/14/12 Ubidecarenone (Co Q-10) 100 Mg Capsule, 100 MG PO DAILY 03/14/12 Discontinued Reported Medications Aspirin (Baby Aspirin) 81 Mg Tab.chew, 81 MG PO DAILY 03/14/12 Ibuprofen* (Advil*) 200 Mg Capsule, 200 MG PO NEEDED 03/14/12 Vit A/Vit C/Vit E/Zinc/Copper (Preservision Areds Softgel) 1 Cap Capsule, 1 CAP PO DAILY 03/14/12 Docusate Sodium* (Stool Softener*) 100 Mg Capsule, 100 MG PO DAILY 03/14/12 Red Yeast Rice Extract (Red Yeast Rice) 600 Mg Capsule, 600 MG PO BID 03/14/12 Calcium Carbonate/Vitamin D3 (Calcium + Vitamin D Tablet) 1 Tab Tablet, 1 TAB PO DAILY 03/14/12 Fish Oil* (Fish Oil*) 1,000 Mg Cap, 1000 MG PO DAILY 03/14/12 Allergies Allergies: Coded Allergies: No Known Drug Allergy (Verified Allergy, Mild, 12/21/16) PMhx/Soc History of Surgery: Yes (R BREAST MASTECTOMY, R KNEE SX, LEFT BREAST REDUCTION) Anesthesia Reaction: No Hx Neurological Disorder: No Hx Respiratory Disorders: No Hx Cardiac Disorders: Yes (HLP) Hx Psychiatric Problems: No Hx Miscellaneous Medical Probl: Yes (breast ca, peripheral neuro, R TKR, hypothyroidism, OP, HLD) Hx Alcohol Use: Yes (OCCASIONAL) Hx Substance Use: No Hx Tobacco Use: No Physical Exam Vitals Vital Signs Date Time Temp Pulse Resp B/P Pulse Ox O2 Delivery O2 Flow Rate FiO2 12/25/16 08:13 98.3 71 18 111/71 98 Physical Exam Constitutional:Well-developed. Well-nourished. HEENT:Normocephalic. Atraumatic.Pupils were equal round reactive to light. Moist mucous membranes.No tonsillar exudates. Respiratory: Not using accessory muscles of respiration.Lungs were clear to auscultation bilaterally. No rhonchi. No rales. No wheezing. Cardiovascular: Regular rate regular rhythm.No murmurs. No rubs were appreciated.S1, S2 normal. Distal pulses are palpable 2+ bilaterally. Muscle skeletal: Full range of motion of both the upper extremities bilaterally. Limited range of motion of the left lower extremity due to recent surgery and normal muscle tone.No assymetrical calf tenderness or swelling. Skin: No petechia, no purpura. No lesions on the palms or the soles of the feet. No maculopapular rash. Surgical incision site on the anterior aspect of the left knee was clean dry and intact with surrounding soft tissue swelling and no surrounding tenderness, warmth or erythema. No subcutaneous emphysema. No ecchymosis around the surgical incision site and no bullae. NEURO: Patient was alert, awake, orientated x3.No facial droop.Speech had regular rate and rhythm. No focal neurological deficits. Result Diagram: 12/25/1645 12/25/1645 Results 24 hrs Laboratory Tests Test 12/25/16 08:45 Activated Partial Thromboplast Time 32.4Sec Alanine Aminotransferase (ALT/SGPT) 19IU/L Albumin 3.5g/dl Albumin/Globulin Ratio 1.29 Alkaline Phosphatase 81IU/L Anion Gap 15 Aspartate Amino Transf (AST/SGOT) 22IU/L Basophils # 0.010^3/ul Basophils % 0.2% Blood Urea Nitrogen 8mg/dl Calcium Level 9.4mg/dl Carbon Dioxide Level 31mmol/L Chloride Level 103mmol/L Creatinine 0.79mg/dl Direct Bilirubin 0.00mg/dl Eosinophils # 0.210^3/ul Eosinophils % 4.0% Globulin 2.70g/dl Glucose Level 95mg/dl Hematocrit 37.4% Hemoglobin 12.2g/dl INR International Normalized Ratio 0.98 Indirect Bilirubin 0.4mg/dl Lymphocytes # 1.010^3/ul Lymphocytes % 22.7% Mean Corpuscular Hemoglobin 32.2pg Mean Corpuscular Hemoglobin Concent 32.6g/dl Mean Corpuscular Volume 98.7fl Mean Platelet Volume 10.6fl Monocytes # 0.510^3/ul Monocytes % 10.7% Neutrophils # 2.710^3/ul Neutrophils % 62.2% Nucleated Red Blood Cells # 0.010^3/ul Nucleated Red Blood Cells % 0.0/100WBC Platelet Count 48832^3/UL Potassium Level 4.2mmol/L Prothrombin Time 13.0Sec Prothrombin Time Ratio 1.0 Red Blood Count 3.7910^6/ul Red Cell Distribution Width 13.4% Sodium Level 145mmol/L Total Bilirubin 0.4mg/dl Total Protein 6.2g/dl White Blood Count 4.310^3/ul Current Medications Medications (Trade) Dose Ordered Sig/Carl Route PRN Reason Start Time Stop Time Status Last Admin Dose Admin Diclofenac Sodium (Dyloject) 37.5 mg ONCE STAT IV 12/25/16 08:35 12/25/16 08:39 DC 12/25/16 09:00 Procedures/MDM This patient presented to the emergency department with mild postoperative swelling. Dr. Vogel come to the bedside to further evaluate the patient. There was no leukocytosis and the patient was afebrile with no evidence of postoperative infection. Venous duplex ultrasound of the left lower extremity indicated there was no evidence of a deep vein thrombosis. Departure Condition: JANIYA Pitts Dec 25, 2016 08:45
[2016-12-25 09:01] LABS: ADD SCAN DIFF NO
[2016-12-25 09:04] LABS: BASOPHILS % 0.2 % (0.0-2.0); EOSINOPHILS # 0.2 10^3/ul (0.0-0.5); HEMATOCRIT 37.4 % (37.0-47.0); HEMOGLOBIN 12.2 g/dl (12.0-16.0); LYMPHOCYTES % 22.7 % (15.0-51.0); MEAN CORPUSCULAR HEMOGLOBIN 32.2 pg (29.0-33.0); MEAN CORPUSCULAR HGB CONC 32.6 g/dl (32.0-37.0); MEAN CORPUSCULAR VOLUME 98.7 fl (82.0-101.0); MEAN PLATELET VOLUME 10.6 fl (7.4-10.4); MONOCYTE # 0.5 10^3/ul (0.3-0.9); MONOCYTES % 10.7 % (0.0-11.0); NEUTROPHIL # 2.7 10^3/ul (1.6-7.5); NEUTROPHILS % 62.2 % (39.0-77.0); PLATELET COUNT 210 10^3/UL (140-415); RED BLOOD COUNT 3.79 10^6/ul (4.20-5.40); RED CELL DISTRIBUTION WIDTH 13.4 % (11.5-14.5); WHITE BLOOD COUNT 4.3 10^3/ul (4.8-10.8)
[2016-12-25 09:14] LABS: ALBUMIN 3.5 g/dl (3.3-4.9)
[2016-12-25 09:15] LABS: POTASSIUM 4.2 mmol/L (3.5-5.1)
[2016-12-25 09:16] LABS: INR 0.98
[2016-12-25 09:17] LABS: ALBUMIN/GLOBULIN RATIO 1.29; BILIRUBIN,INDIRECT 0.4 mg/dl (0-1.1); BILIRUBIN,TOTAL 0.4 mg/dl (0.2-1.3); CREATININE 0.79 mg/dl (0.44-1.00); PARTIAL THROMBOPLASTIN TIME 32.4 Sec (25.0-35.0); TOTAL PROTEIN 6.2 g/dl (6.1-8.1)
[2016-12-25 09:18] LABS: CALCIUM 9.4 mg/dl (8.4-10.2)
--- NOTE | 2016-12-25 09:33 | RADRPT ---
PROCEDURE: US Lower extremity Venous. CLINICAL INDICATION: Left leg pain and swelling TECHNIQUE: Multiple sonographic images of the left lower extremity deep venous system was obtained utilizing wong scale, color-flow, compressive sonography and doppler imaging with augmentation. Th e images were reviewed on a PACS workstation. COMPARISON: None. FINDINGS: There is normal compressibility and flow within the left common femoral, deep femoral, superficial f emoral and popliteal veins. Normal color flow is seen with respiratory variability and augmentation. IMPRESSION: No sonographic evidence for deep venous thrombosis in the left lower extremity. RPTAT: HPNM Physician Kade Date Time Electronically viewed and signed by Physician Kade on 12/25/2016 09:33 /
--- NOTE | 2016-12-25 10:37 | PN ---
Date/Time of Note Date/Time of Note DATE: 12/25/16 TIME: 10:34 Assessment/Plan Assessment/Plan Assessment/Plan 4 days s/p left TKA. No evidence of wound infection or DVT. Has some mild cellulitis posteromedially around knee which may represent early cellulitis. -OK to d/c to home -Start Keflex 500 mg po qid plus Bactrim DS 1 po bid -F/u with me in office in 2 days for wound check -Elevate and ice left LE -Pain meds -Continue ASA and home SCDS for DVT prophylaxis Subjective 24 Hr Interval Summary Patient called me this morning from home. She is 4 days s/p left TKA. Has had some swelling around knee. Denies fevers or chills. Told to come to ER. Exam/Review of Systems Vital Signs Vitals Vital Signs Date Time Temp Pulse Resp B/P Pulse Ox O2 Delivery O2 Flow Rate FiO2 12/25/16 08:13 98.3 71 18 111/71 98 Exam Free Text/Dictation Dressing dry Incision clean, dry, and intact without redness or drainage. Trace redness along posteromedial knee away from incision with some bruising. 5/5 Tibialis Anterior, EHL, Gastroc Soleus, Peroneals Normal sensation Palpable DP/PT, CR < 2 Sec No distal edema Doppler: No DVT Results Result Diagram: 12/25/16 0845 12/25/16 0845 JET BALDERAS MD Dec 25, 2016 10:37
[2016-12-25 10:41] VITALS: BP 128/76; PULSE 70; RESP 19; TEMP 98.4
== END 2016-12-25 10:42 | disposition home or self-care (01) ==
LOC: E/R 08:09
DX: G89.18 Other acute postprocedural pain (principal); M25.562 Pain in left knee; R22.42 Localized swelling, mass and lump, left lower limb; E03.9 Hypothyroidism, unspecified; M79.605 Pain in left leg; Z85.3 Personal history of malignant neoplasm of breast; Z96.653 Presence of artificial knee joint, bilateral; Z79.82 Long term (current) use of aspirin
CPT/HCPCS: 36415; 80053; 85025; 85610; 85730; 93971; 96374

== ENCOUNTER → 2016-12-27 | Outpatient (CLI) | payer MEDICARE, OTHER | END | disposition home or self-care (01) | LOC: HKI 09:57 | PROVIDERS: ATTEND Orthopaedic Surgery | DX: Z47.1 Aftercare following joint replacement surgery (principal); M17.12 Unilateral primary osteoarthritis, left knee; Z96.652 Presence of left artificial knee joint ==

== ENCOUNTER → 2016-12-31 | Outpatient (CLI) | payer MEDICARE, OTHER ==
--- NOTE | 2016-12-31 11:00 | RADRPT ---
PROCEDURE: XR left knee. CLINICAL INDICATION: Knee pain. TECHNIQUE: AP and lateral views are available for review. COMPARISON: 12/21/2016 FINDINGS: There is a total knee replacement. There is no evidence of loosening of the prosthesis. The osseous structures are normal in mineralization, architecture and alignment No acute fracture or dislocation is seen. There is a 13 mm well circumscribed lytic lesion involving the distal femoral diaphysis. The soft tissues are unremarkable . skin lucy are present anteriorly IMPRESSION: Unremarkable total knee replacement. 13 mm well circumscribed lytic lesion in the distal femoral diaphysis (unknown etiology) Recommendations: CT/MRI for further evaluation of lesion in the distal femur RPTAT: HGDB .Johnny Elaine MD, MD Date Time Electronically viewed and signed by .Johnny Elaine MD, on 12/31/2016 11:00 .B/
--- NOTE | 2016-12-31 12:40 | HKNOTE ---
DATE OF SERVICE: 12/31/2016 INTERVAL HISTORY: The patient presents today for her first postoperative evaluation on her left knee. She is now about 10 days status post left total knee arthroplasty. She is doing well overall. She has been having only mild pain. She has been working with home health. She denies any fevers or chills. She has been taking aspirin twice daily for DVT prophylaxis. She is doing well and is happy with her progress so far. She presents today for her first postoperative evaluation. PHYSICAL EXAMINATION: Today, she is alert and oriented x4, in no acute distress. She is ambulating with a front-wheel walker. Examination of the knee demonstrates the incision to be clean, dry and intact. It is well healing. Eugene are in place. Varus and valgus forces are stable. Range of motion is 0 to 90 degrees. There is no erythema or warmth. Compartments are soft. She is neurovascularly intact distally. IMAGING: X-rays of the left knee were obtained today and reviewed by me. They reveal the femoral and tibial components to be in good anatomic alignment. There is no fracture or dislocation identified. ASSESSMENT: Ten days status post left total knee arthroplasty. PLAN: The patient is to continue home physical therapy and transition to an outpatient physical therapy program. She will plan to do it at [facility] in [place] where she has done it previously for her right knee. The lucy were removed today and Steri-Strips were applied. She is to continue ambulating with a front-wheel walker and transition to a cane as tolerated. Additionally, the patient should continue aspirin twice daily for 6 weeks for DVT prophylaxis. She will follow up in 4 weeks for repeat evaluation. Dictated By: MASSIMO SYLVESTER for JET DEAL/KAYLIE Conf#: [id number] DID#: [id number] MTDSilva
== END | disposition home or self-care (01) ==
LOC: HKI 09:49
PROVIDERS: ATTEND Orthopaedic Surgery
DX: Z47.1 Aftercare following joint replacement surgery (principal); Z96.652 Presence of left artificial knee joint

== ENCOUNTER → 2017-01-28 | Outpatient (CLI) | payer MEDICARE, OTHER | END | disposition home or self-care (01) | LOC: HKI 09:49 | PROVIDERS: ATTEND Orthopaedic Surgery | DX: Z47.1 Aftercare following joint replacement surgery (principal); Z96.652 Presence of left artificial knee joint; M17.12 Unilateral primary osteoarthritis, left knee ==

== ENCOUNTER → 2017-03-25 | Outpatient (CLI) | payer MEDICARE, OTHER ==
--- NOTE | 2017-03-25 10:52 | RADRPT ---
PROCEDURE: XR left knee. CLINICAL INDICATION: Knee pain. TECHNIQUE: AP weightbearing, lateral weightbearing and sunrise views are available for review. COMPARISON: 12/31/2016 FINDINGS: There is a total knee replacement. There is no evidence of loosening of the prosthesis. There is no evidence of hardware failure. The previously described 13 mm lytic lesion in the distal femoral diap hysis is no longer identified. The osseous structures are otherwise normal in mineralization, riri ecture and alignment No acute fracture or dislocation is seen.No osseous lesions are identified. Th e soft tissues are unremarkable . IMPRESSION: Unremarkable total knee replacement. RPTAT: HGDB .Johnny Elaine MD, MD Date Time Electronically viewed and signed by .Johnny Elaine MD, on 03/25/2017 10:52 .B/
== END | disposition home or self-care (01) ==
LOC: HKI 09:46
PROVIDERS: ATTEND Orthopaedic Surgery
DX: M25.551 Pain in right hip (principal); M70.61 Trochanteric bursitis, right hip; Z96.653 Presence of artificial knee joint, bilateral
CPT/HCPCS: 20610; 73562; G0463; J1030